=== PATIENT | female | born 1945 | race Caucasian/White ===

== ENCOUNTER → 2017-06-28 | Day surgery (SDC) | payer MEDICARE ==
[~2017-06-28] VITALS: Ht 165.1 cm; Wt 56.7 kg
[~2017-06-28] MED LIST: 0.9% Sodium Chloride 1,000 ML IV PRN; AMT25T PO; BIOT5000 PO; CALC-190 PO; CETI10CA PO; CHOL200047 PO; DONE5TAB30 PO; DOXY50CA2 PO; EFLO30CR2 TP; METO50TA3 PO; MONT10TA20 PO; MULT1CAP33 PO; OMEP40CA36 PO; SIMV40TA5 PO; SUMA50TA31 PO; Sodium Chloride LOK Flush 10 mL Syringe IV PRN; TRIA10.8 NS; TRIA16.58 NS; TRIA1TAB2 PO; UBID100C16 PO; fentaNYL-PF 50 mCg/mL 2 mL Inj IVPUSH PRN
[2017-06-28 14:13] VITALS: BP 134/85; PULSE 91; RESP 16; O2SAT 98
--- NOTE | 2017-06-28 15:14 | PCM.ENDCOL ---
Colonoscopy Date of Service: Jun 28, 2017 Physician Marquise Venegas MD Pre Procedure Diagnosis: Screening Post Procedure Dx & Findings: Polyp hemorrhoids diverticula Procedure Colonoscopy PROCEDURE IN DETAIL: Prep adequate Withdrawal time 13 minutes After unremarkable rectal examination the Olympus video colonoscope was inserted patient's anal canal and was advanced to cecum. Landmarks were identified including the ileocecal valve and appendiceal orifice. Scope was withdrawn systematically. Visualized colonic mucosa showed healthy shiny mucosa with normal healthy-appearing vasculature. In the sigmoid colon there was a 1 mm polyp which was removed completely with cold forceps. Patient had few isolated small scattered diverticuli from the ascending colon to the sigmoid colon. In the rectum retroflexion was done which showed hemorrhoids. Anal canal was inspected carefully on the way out and hemorrhoids noted. Impression Polyp 1. Complete removal Diverticulosis Hemorrhoids Recommendation Repeat colonoscopy 5 years Diverticular diet Presedation Assessment Risks and Benefits Informed consent was obtained from the patient after all risks and benefits including but not limited to drug reaction, infection, pain, bleeding, perforation, as well as alternatives were discussed. Patient monitoring Continuous pulse oximetry, cardiac monitoring, blood pressure monitoring, IV access, and oxygen at 2L per nasal cannula. Periprocedural Fentanyl: Fentanyl 75mcg Incrementally Midazolam: Midazolam 4mg Incrementally Complications There were no periprocedural complications identified. Post Procedure Plan Post Procedure Recommendations 1. Restrict activities today. 2. Resume normal activities in the morning. 3. Resume medications. 4. Patient informed of normal post procedure side effects as bloating, drowsiness, blood streaking in the stool. 5. average risk CRCS. If colon polyps come back as: -Hyperplastic- can repeat colonoscopy in 10 years -Tubular adenoma- repeat colonoscopy in 5 years -Tubulovillous/villous adenoma- repeat colonoscopy in 3 years -If any dysplasia- return to clinic as soon as possible 6. Please don't hesitate to call me with any questions. Marquise Venegas MD Jun 28, 2017 15:14
[2017-06-28 15:15] VITALS: BP 122/67; PULSE 79; O2SAT 100
[2017-06-28 15:27] VITALS: BP 129/69; PULSE 74; O2SAT 100
[2017-06-28 15:37] VITALS: BP 139/90; PULSE 74; O2SAT 98
--- NOTE | 2017-07-02 16:34 | PATH ---
SURGICAL PATHOLOGY Attending Physician:Marquise Venegas M.D. CASE STATUS: Signed Out PATIENT NAME: ERICA REEDER PID: [id number] : 1945 DATE COLLECTED:06/28/2017 00:00 SPECIMEN: Colon, Polyp CLINICAL HISTORY: 1). SIGMOID COLON POLYP FINAL DIAGNOSIS: 1.SIGMOID COLON POLYP, BIOPSY: COLONIC MUCOSA WITH NO DIAGNOSTIC ABNORMALITY CONSISTENT WITH POLYPOID REDUNDANCY. Additional step-sections examined. ICD10 D12.5 GROSS DESCRIPTION: The specimen is received in one formalin filled container labeled with the patient's name, sublabeled "sigmoid colon polyp" and consists of a 0.1 x 0.1 x 0.1 CM portion of tissue which is entirely submitted in cassette. 06/29/2017DC MICRO DESCRIPTION: See diagnosis. ICD-9 CODES: CPT CODES: 1: 44297 Electronically Signed Out Bob Vasquez MD, Ph.D. [facility] [address], [place] [address] Technical component performed at [facility], [address] [place] [address] Ave[address], [place], [address]
== END | disposition home or self-care (01) ==
LOC: END 00:24
PROVIDERS: ATTEND Internal Medicine
DX: Z12.11 Encounter for screening for malignant neoplasm of colon (principal); K63.5 Polyp of colon; K57.30 Diverticulosis of large intestine without perforation or abscess without bleeding; K64.8 Other hemorrhoids; I10 Essential (primary) hypertension; E78.5 Hyperlipidemia, unspecified; K21.9 Gastro-esophageal reflux disease without esophagitis; J45.909 Unspecified asthma, uncomplicated
CPT/HCPCS: 45380; 99153; G0500; J2250; J3010; J7030